=== PATIENT | female | born 1970 | race Two or more races ===

== ENCOUNTER → 2016-09-17 | Outpatient (CLI) | payer MEDICAID ==
--- NOTE | 2016-09-17 14:07 | US ---
Ultrasound Pelvis Complete (Transabdominal and Endovaginal) Including Duplex/Doppler Imaging History: Enlarged left ovary on physical exam. N92.6, irregular menstruation, R10.2, pelvic pain, R19 .00. Technique: Transabdominal and endovaginal ultrasound images were obtained. Endovaginal images obtain ed for better evaluation of the uterine myometrium and adnexa. Duplex/Doppler imaging of adnexa. Findings: Uterus measures 8 x 4 x 6 cm. Endometrial thickness is 5 mm. Extending from the left fundu s cornua of the uterus, there is an exophytic hypoechoic 5.1 x 4.6 x 4.1 cm leiomyoma. Also in the ri ght fundus region, there is a 2.6 x 2.2 x 2.1 cm hypoechoic leiomyoma. Also in the anterior fundal re gion, there is a subserosal 1.5 x 1.2 x 1.3 cm leiomyoma. Right ovary measures 2.8 x 2.3 x 1.6 cm. Left ovary measures 3.8 x 3.7 x 4.6 cm. In the left ovary, t here is a 3.4 x 3.3 x 2.9 cm complex cyst. No significant free fluid in the pelvis. Color Doppler alfonso w to both ovaries without torsion. Impression: 1. Leiomyomatous uterus with 3 leiomyomas, including the largest in the left fundal region measuring 5.1 x 4.6 x 4.1 cm. 2. Complex left ovarian 3.4 x 3.3 x 2.9 cm cystic lesion, which may represent a hemorrhagic cyst, how ever, follow-up ultrasound imaging in 8 to 12 weeks is recommended. 3. No ovarian torsion or significant ascites.
== END ==
LOC: FIMAGING 11:14
PROVIDERS: ATTEND Family Medicine
DX: D25.9 Leiomyoma of uterus, unspecified (principal); N83.202 Unspecified ovarian cyst, left side; R10.2 Pelvic and perineal pain; N92.6 Irregular menstruation, unspecified

== ENCOUNTER 2016-10-15 22:46 | Inpatient (IN) | payer MEDICAID ==
--- NOTE | 2016-10-15 22:53 | EDPHY ---
H & P Stated Complaint: N/V HPI/ROS: HPI CHIEF COMPLAINT: Abdominal pain HISTORY OF PRESENT ILLNESS: This patient very pleasant 46-year-old female Greek-speaking only, at bedside speaks Sami and Greek, presents to the emergency room with epigastric and right upper quadrant pain after eating this evening. Patient tells me that around 630 they had a salad, shortly after she developed epigastric abdominal pain right upper quadrant abdominal pain sharp in nature. Nonradiating. She developed nausea with multiple episodes of nonbilious nonbloody vomiting. She tells me that she has had 2 other episodes of this 1 in May and 1 in July. She had blood work done imaging initially they thought it was her appendix then they thought maybe it was her stomach. She was sent home on Zantac and Zofran. She has not had this every day. This just started this evening. She describes the pain as 7/10 epigastric right upper quadrant. Past Medical History: Denies any significant medical history Past Surgical History: Denies significant surgical history Social History: Denies use of drugs alcohol tobacco products Family History: Noncontributory ROS REVIEW OF SYSTEMS: A comprehensive 10 point review of systems is otherwise negative aside from elements mentioned in the history of present illness. Exam Constitutional triage nursing summary reviewed, vital signs reviewed, awake/ alert. Eyes normal conjunctivae and sclera, EOMI, PERRLA. HENT normal inspection, atraumatic, moist mucus membranes, no epistaxis, neck supple/ no meningismus, no raccoon eyes. Respiratory clear to auscultation bilaterally, normal breath sounds, no respiratory distress, no wheezing. Cardiovascular rate normal, regular rhythm, no murmur, no edema, distal pulses normal. Gastrointestinal soft, non-tender, no rebound, no guarding, normal bowel sounds, no distension, no pulsatile mass. Genitourinary no CVA tenderness. Musculoskeletal no midline vertebral tenderness, full range of motion, no calf swelling, no tenderness of extremities, no meningismus, good pulses, neurovascularly intact. Skin pink, warm, & dry, no rash, skin atraumatic. Neurologic awake, alert and oriented x 3, AAOx3, moves all 4 extremities equally, motor intact, sensory intact, CN II-XII intact, normal cerebellar, normal vision, normal speech. Psychiatric normal mood/affect. Heme/Lymph/Immune no lymphadenopathy. Differential diagnosis includes but is not limited to and in no particular order : gastritis, esophagitis, peptic ulcer disease, gallbladder disease Bowel obstruction, appendicitis, diverticulitis, colitis, enteritis, perforated viscus , gastritis, GERD, esophagitis, urinary tract infection, pyelonephritis, kidney stones Medical Decision Making: Patient had an IV established, she will be medicated with IV Dilaudid for pain control IV Zofran for nausea. IV fluids. Obtain an ultrasound of the right upper quadrant. Evaluate her gallbladder and pancreas. She will have lipase CBC LFTs EKG and troponin. Will hydrated with normal saline at a re-evaluated. Re-evaluation: EKG interpretation by me on record in [employer] system. Impression time of EKG 2226, this is sinus rhythm rate of 76. No acute ischemic changes appreciated. CT scan of the abdomen pelvis with IV contrast. The results of the study are negative for acute intra-abdominal process. The study was read by Dr. Barajas I viewed the images myself on the PACS system. Ultrasound of the right upper quadrant The results of the study are negative for anything acute specifically no gallstones, or evidence of cholecystitis. I discussed the results of this study with the radiologist Dr. Gutierrez. 0235: RE-EXAMINATION AT THIS TIME IS PATIENT STILL HAS ONGOING NAUSEA WITH VOMITING. NONBILIOUS NONBLOODY. SHE IS STILL MILDLY TENDER EPIGASTRIC. I WONDER SHE HAS GASTRITIS VERSUS PEPTIC ULCER DISEASE. HER CT SCAN, ULTRASOUND AND BLOOD WORK ARE REASSURING. DUE TO ONGOING NAUSEA VOMITING AND REALLY MINIMAL RELIEF HERE IN THE EMERGENCY ROOM AND 3RD ER VISIT I WILL KEEP HER IN THE HOSPITAL OVERNIGHT TO THE HOSPITALIST SERVICE I SPOKE WITH DR. ANGELA OF [facility] TO ADMIT THIS PATIENT FOR ONGOING NAUSEA VOMITING GASTRITIS. Here in the emergency room she has been given GI cocktail, IV Protonix, multiple rounds of antiemetics including Zofran and Phenergan, Dilaudid for pain control. She continues to have epigastric pain nausea vomiting. Her troponin is noted to be negative EKG is nonischemic. Most likely gastritis versus peptic ulcer disease given her reassuring ultrasound of her gallbladder and CT scan. Source: Patient - Personal History LMP (Females 10-55): 1-7 Days Ago Tetanus Vaccine Date: 2009 - Medical/Surgical History Hx Asthma: No Hx Chronic Respiratory Disease: No Hx Diabetes: No Hx Cardiac Disease: No Hx Renal Disease: No Hx Cirrhosis: No Hx Alcoholism: No Hx HIV/AIDS: No Hx Splenectomy or Spleen Trauma: No Other PMH: denies - Social History Smoking Status: Never smoked Constitutional: Initial Vital Signs Temperature (C) 36.8 C 10/15/16 22:48 Heart Rate 89 10/15/16 22:48 Respiratory Rate 20 10/15/16 22:48 Blood Pressure 123/79 H 10/15/16 22:48 O2 Sat (%) 97 10/15/16 22:48 O2 Delivery Mode Nasal Cannula O2 (L/minute) 2 Allergies/Adverse Reactions: No Known Allergies Allergy (Verified 08/05/16 23:43) Home Medications: Medication Instructions Recorded NK [No Known Home Meds] 10/15/16 Medical Decision Making - Data Points Laboratory Results: Laboratory Results 10/15/16 23:10 10/15/16 23:10 10/16/16 10/15/16 01:05 23:10 WBC 13.69 H 10^3/uL (3.80-9.50) RBC 4.72 10^6/uL (4.18-5.33) Hgb 14.5 g/dL (12.6-16.3) Hct 42.1 % (38.0-47.0) MCV 89.2 fL (81.5-99.8) MCH 30.7 pg (27.9-34.1) MCHC 34.4 g/dL (32.4-36.7) RDW 12.5 % (11.5-15.2) Plt Count 275 10^3/uL (150-400) MPV 10.8 fL (8.7-11.7) Neut % (Auto) 81.1 H % (39.3-74.2) Lymph % (Auto) 11.8 L % (15.0-45.0) [place] % (Auto) 5.6 % (4.5-13.0) Eos % (Auto) 0.7 % (0.6-7.6) Baso % (Auto) 0.4 % (0.3-1.7) Nucleat RBC Rel Count 0.0 % (0.0-0.2) Absolute Neuts (auto) 11.09 H 10^3/uL (1.70-6.50) Absolute Lymphs (auto) 1.61 10^3/uL (1.00-3.00) Absolute Monos (auto) 0.77 10^3/uL (0.30-0.80) Absolute Eos (auto) 0.10 10^3/uL (0.03-0.40) Absolute Basos (auto) 0.06 10^3/uL (0.02-0.10) Absolute Nucleated RBC 0.00 10^3/uL (0-0.01) Immature Gran % 0.4 % (0.0-1.1) Immature Gran # 0.06 10^3/uL (0.00-0.10) PT 12.5 SEC (12.0-15.0) INR 0.94 (0.83-1.16) APTT 23.1 SEC (23.0-38.0) VBG Lactic Acid 1.4 mmol/L (0.7-2.1) Sodium 144 mEq/L (134-144) Potassium 3.9 mEq/L (3.5-5.2) Chloride 103 mEq/L (97-110) Carbon Dioxide 28 mEq/l (22-31) Anion Gap 13 mEq/L (8-16) BUN 16 mg/dL (7-23) Creatinine 0.7 mg/dL (0.6-1.0) Estimated GFR > 60 Glucose 101 H mg/dL (70-100) Calcium 9.3 mg/dL (8.5-10.4) Total Bilirubin 0.6 mg/dL (0.1-1.4) Conjugated Bilirubin 0.2 mg/dL (0.0-0.5) Unconjugated Bilirubin 0.4 mg/dL (0.0-1.1) AST 28 IU/L (14-46) ALT 37 IU/L (9-52) Alkaline Phosphatase 59 IU/L (38-126) Troponin I < 0.012 ng/mL (0-0.034) Total Protein 7.9 g/dL (6.3-8.2) Albumin 4.4 g/dL (3.5-5.0) Amylase 99 IU/L (30-110) Lipase 105.0 IU/L (23-300) Beta HCG, Qual NEGATIVE Urine Color YELLOW Urine Appearance HAZY Urine pH 5.0 (5.0-7.5) Ur Specific [place] > 1.035 H (1.002-1.030) Urine Protein NEGATIVE (NEGATIVE) Urine Ketones 1+ H (NEGATIVE) Urine Blood NEGATIVE (NEGATIVE) Urine Nitrate NEGATIVE (NEGATIVE) Urine Bilirubin NEGATIVE (NEGATIVE) Urine Urobilinogen NEGATIVE EU (0.2-1.0) Ur Leukocyte Esterase 3+ H (NEGATIVE) Urine RBC 3-5 H /hpf (0-3) Urine WBC 3-5 H /hpf (0-3) Ur Epithelial Cells TRACE /lpf (NONE-1+) Urine Mucus 2+ H /lpf (NONE-1+) Ur Culture Indicated? INDICATED H (NI) Urine Glucose NEGATIVE (NEGATIVE) Medications Given: Discontinued Medications Hydromorphone HCl (Dilaudid) 0.5 mg IVP EDNOW ONE Stop: 10/15/16 22:59 Last Admin: 10/15/16 23:13 Dose: 0.5 mg Hydromorphone HCl (Dilaudid) 1 mg IVP EDNOW ONE Stop: 10/15/16 23:38 Last Admin: 10/15/16 23:41 Dose: 1 mg Sodium Chloride (Ns) 1,000 mls @ 0 mls/hr IV ONCE ONE PRN Reason: Wide Open Stop: 10/15/16 22:59 Last Admin: 10/15/16 23:12 Dose: 1,000 mls Miscellaneous Medication (Gi Cocktail) 55 ml PO EDNOW ONE Stop: 10/16/16 02:08 Last Admin: 10/16/16 02:08 Dose: 55 ml Ondansetron HCl (Zofran) 4 mg IVP EDNOW ONE Stop: 10/15/16 22:59 Last Admin: 10/15/16 23:13 Dose: 4 mg Departure - Departure Disposition: [facility] Inpatient Acute Clinical Impression: Abdominal pain Qualifiers: Abdominal location: epigastric Qualifier Code: (R10.13) Epigastric pain Nausea and vomiting Qualifiers: Vomiting type: unspecified Vomiting Intractability: intractable Qualifier Code : (R11.2) Nausea with vomiting, unspecified Condition: Fair
[2016-10-15] MEDS ORDERED: HYDROmorphONE/DILAUDID 1 MG/ML SYR IVP ONE ×2 (22:58→23:37)
[2016-10-15] MEDS ORDERED: ONDANSETRON 4 MG/2 ML VIAL IVP ONE (22:58)
[2016-10-15] MEDS ORDERED: NS 1,000 ML IV ONE (22:58)
[2016-10-15 23:30] LABS: % IMMATURE GRANULYOCYTES 0.4 % (0.0-1.1); ABSOLUTE IMMATURE GRANULOCYTES 0.06 10^3/uL (0.00-0.10); ADD DIFF? NO; ADD MORPH? NO; ADD SCAN? NO; ATYPICAL LYMPHOCYTE FLAG 0 (0-99); FRAGMENT RBC FLAG 0 (0-99); HEMATOCRIT 42.1 % (38.0-47.0); HEMOGLOBIN 14.5 g/dL (12.6-16.3); LEFT SHIFT FLG 0 (0-99); LIPEMIA HEMOLYSIS FLAG 90 (0-99); MEAN CELL HEMOGLOBIN 30.7 pg (27.9-34.1); MEAN CELL HEMOGLOBIN CONCENTR. 34.4 g/dL (32.4-36.7); MEAN CELL VOLUME 89.2 fL (81.5-99.8); MEAN PLATELET VOLUME 10.8 fL (8.7-11.7); PLATELET CLUMPS FLAG 10 (0-99); PLATELET COUNT 275 10^3/uL (150-400); RED BLOOD CELL COUNT 4.72 10^6/uL (4.18-5.33); RED CELL DISTRIBUTION WIDTH 12.5 % (11.5-15.2)
--- NOTE | 2016-10-15 23:30 | CPEKG ---
Heart Rate: 76 RR Interval: 789 P-R Interval: 140 QRSD Interval: 96 QT Interval: 408 QTC Interval: 459 P Hunter: 38 QRS Hunter: 55 T Wave Hunter: 18 EKG Severity - NORMAL ECG - EKG Impression: SINUS RHYTHM Electronically Signed By: Sukumar Mai 16-Oct-2016 07:16:34
[2016-10-15 23:35] LABS: APTT 23.1 SEC (23.0-38.0); INR 0.94 (0.83-1.16); PROTIME(PATIENT) 12.5 SEC (12.0-15.0)
[2016-10-15 23:36] LABS: ALANINE AMINOTRANSFERASE 37 IU/L (9-52); ALBUMIN 4.4 g/dL (3.5-5.0); ALKALINE PHOSPHATASE 59 IU/L (38-126); AMYLASE 99 IU/L (30-110); ANION GAP 13 mEq/L (8-16); ASPARTATE AMINOTRANSFERASE 28 IU/L (14-46); BILIRUBIN,TOTAL 0.6 mg/dL (0.1-1.4); BILIRUBIN-CONJUGATED 0.2 mg/dL (0.0-0.5); BILIRUBIN-UNCONJUGATED 0.4 mg/dL (0.0-1.1); CALCIUM 9.3 mg/dL (8.5-10.4); CARBON DIOXIDE 28 mEq/l (22-31); CHLORIDE 103 mEq/L (97-110); CREATININE 0.7 mg/dL (0.6-1.0); GLOMERULAR FILTRATION RATE > 60; GLUCOSE 101 mg/dL (70-100); POTASSIUM 3.9 mEq/L (3.5-5.2); SODIUM 144 mEq/L (134-144); TOTAL PROTEIN 7.9 g/dL (6.3-8.2)
[2016-10-15] MEDS ORDERED: HYDROmorphONE/DILAUDID 1 MG/ML SYR ONE (23:38)
[2016-10-15] MEDS ORDERED: PROMETHAZINE HCL 25 MG/ML INJ ONE (23:38)
[2016-10-15] MEDS: PROMETHAZINE HCL 25 MG/ML INJ IVP PRN (23:42)
[2016-10-15 23:47] LABS: TROPONIN I < 0.012 ng/mL (0-0.034)
--- NOTE | 2016-10-16 00:10 | US ---
Right Upper Quadrant Abdominal Sonogram History: Possible gallstones, RUQ pain Findings: There are no gallstones, gallbladder wall thickening or pericholecystic fluid. The liver, r ight kidney, pancreas, and common duct are normal. There is no ascites. The visualized aorta and IVC are normal. Impression: Normal study. Results discussed with Dr. Damon at 12:08 a.m.
[2016-10-16] MEDS ORDERED: IOPAMIDOL (ISOVUE-300) 100 ML BTL IV ONE (00:20)
[2016-10-16] MEDS ORDERED: MAALOX/LIDO/HYOSC GI COCKTAIL 55 ML BOTTLE ONE (01:40)
[2016-10-16] MEDS: PROMETHAZINE HCL 25 MG/ML INJ IVP PRN ×2 (01:44→20:28)
[2016-10-16 01:49] LABS: COLOR YELLOW; LEUKOCYTE ESTERASE,URINE 3+ (NEGATIVE); NITRITE,URINE NEGATIVE (NEGATIVE)
[2016-10-16 01:52] LABS: MUCUS 2+ /lpf (NONE-1+)
[2016-10-16] MEDS ORDERED: MAALOX/LIDO/HYOSC GI COCKTAIL 55 ML BOTTLE PO ONE (02:07)
[2016-10-16] MEDS ORDERED: PANTOPRAZOLE SODIUM 40 MG VIAL IVP ONE (02:30)
[2016-10-16] MEDS ORDERED: HYDROmorphONE/DILAUDID 1 MG/ML SYR IVP ONE (02:30)
[2016-10-16] MEDS ORDERED: oxyCODONE IR 5 MG TAB PO PRN (03:07)
[2016-10-16] MEDS ORDERED: ONDANSETRON 4 MG/2 ML VIAL IVP PRN (03:07)
[2016-10-16] MEDS ORDERED: ACETAMINOPHEN 500 MG TAB PO PRN (03:07)
[2016-10-16] MEDS ORDERED: ONDANSETRON DISINTEGRATING 4 MG TAB PO PRN (03:07)
[2016-10-16] MEDS ORDERED: MAG HYDROX/AL HYDROX/SIMETH 30 ML UDCUP PO PRN (03:09)
--- NOTE | 2016-10-16 03:32 | PDGENHP ---
History and Physical - Chief Complaint Nausea vomiting and abdominal pain - History of Present Illness patient is a 46-year-old female with no known past medical history presents to the ED complaining of abdominal pain, nausea and vomiting. Since 05/2016 patient has had 3 visits to the ED and 1 admission for these symptoms, workup had thus far been unrevealing. Today she states her symptoms started shortly after dinner. She ate dinner around 6:00 p.m., reporting a light salad, shortly after began feeling symptoms of early satiety and chills. Nausea then developed and she began vomiting, approximately 7 times in total at home, consisting of food particles, nonbilious and nonbloody. This was associated with sharp and severe epigastric and left upper quadrant pain. She tried Martina- [place] with no relief of symptoms so she came to the ED. Patient denies any regular NSAID use or any alcohol use. Previous workup for her abdominal symptoms included CT imaging and pelvic ultrasound. There is initial concern for acute appendicitis in 05/2016, however this was eventually ruled out. Imaging revealed ovarian cysts, which also are thought to not be contributing to her symptoms. She has not yet been evaluated by a GI doctor. On arrival to the ED patient was afebrile and hemodynamically stable, but with intractable nausea/vomiting. Labs were obtained and were unremarkable including LFTs and lipase. Abdominal US and CT abdomen pelvis were also checked and were unremarkable for any acute pathology. patient was then admitted to the hospital service for further management of her symptoms. History Information - Allergies/Home Medication List Allergies/Adverse Reactions: No Known Allergies Allergy (Verified 08/05/16 23:43) Home Medications: NK [No Known Home Meds] 10/15/16 [Last Taken Unknown] I have personally reviewed and updated: family history, medical history, social history, surgical history - Past Medical History no pertinent PMH - Surgical History Additional surgical history: b/l breast reduction surgery. liposuction - Family History Positive for: diabetes type II - Social History Smoking Status: Never smoked Alcohol Use: None Drug Use: None Additional social history: Patient is originally from [place], currently lives in [place] with her . Review of Systems ROS: 10pt was reviewed & negative except for what was stated in HPI & below Physical Exam Temp Pulse Resp BP Pulse Ox 36.8 C 81 18 114/78 100 10/15/16 22:48 10/16/16 02:52 10/16/16 02:52 10/16/16 02:52 10/16/16 02:52 O2 (L/minute) 2 Constitutional: no apparent distress, appears nourished, not in pain Eyes: PERRL, anicteric sclera, EOMI Ears, Nose, Mouth, Throat: moist mucous membranes, hearing normal, ears appear normal, no oral mucosal ulcers Cardiovascular: regular rate and rhythym, no murmur, rub, or gallop, pulses symmetric bilaterally, No JVD, No edema Peripheral Pulses: 2+: dorsalis-pedis (R), dorsalis-pedis (L) Respiratory: no respiratory distress, no rales or rhonchi, clear to auscultation Gastrointestinal: normoactive bowel sounds, no palpable masses, tenderness ( In epigastrium and left upper quadrant), No ascites, No guarding, No rebound, No distension Genitourinary: no bladder fullness, no bladder tenderness Skin: warm, normal color, no rashes or abrasions, no fluctuance, no induration, No mottled Musculoskeletal: full muscle strength, no muscle tenderness, normal joint ROM, no joint effusions Neurologic: AAOx3, sensation intact bilaterally, CN II-XII Intact, No weakness, No numbness, No pronator drift Psychiatric: interacting appropriately, not anxious, not encephalopathic, thought process linear Lab Data & Imaging Review 10/15/16 23:10 10/15/16 23:10 WBC 13.69 10^3/uL (3.80-9.50) H 10/15/16 23:10 RBC 4.72 10^6/uL (4.18-5.33) 10/15/16 23:10 Hgb 14.5 g/dL (12.6-16.3) 10/15/16 23:10 Hct 42.1 % (38.0-47.0) 10/15/16 23:10 MCV 89.2 fL (81.5-99.8) 10/15/16 23:10 MCH 30.7 pg (27.9-34.1) 10/15/16 23:10 MCHC 34.4 g/dL (32.4-36.7) 10/15/16 23:10 RDW 12.5 % (11.5-15.2) 10/15/16 23:10 Plt Count 275 10^3/uL (150-400) 10/15/16 23:10 MPV 10.8 fL (8.7-11.7) 10/15/16 23:10 Neut % (Auto) 81.1 % (39.3-74.2) H 10/15/16 23:10 Lymph % (Auto) 11.8 % (15.0-45.0) L 10/15/16 23:10 [place] % (Auto) 5.6 % (4.5-13.0) 10/15/16 23:10 Eos % (Auto) 0.7 % (0.6-7.6) 10/15/16 23:10 Baso % (Auto) 0.4 % (0.3-1.7) 10/15/16 23:10 Nucleat RBC Rel Count 0.0 % (0.0-0.2) 10/15/16 23:10 Absolute Neuts (auto) 11.09 10^3/uL (1.70-6.50) H 10/15/16 23:10 Absolute Lymphs (auto) 1.61 10^3/uL (1.00-3.00) 10/15/16 23:10 Absolute Monos (auto) 0.77 10^3/uL (0.30-0.80) 10/15/16 23:10 Absolute Eos (auto) 0.10 10^3/uL (0.03-0.40) 10/15/16 23:10 Absolute Basos (auto) 0.06 10^3/uL (0.02-0.10) 10/15/16 23:10 Absolute Nucleated RBC 0.00 10^3/uL (0-0.01) 10/15/16 23:10 Immature Gran % 0.4 % (0.0-1.1) 10/15/16 23:10 Immature Gran # 0.06 10^3/uL (0.00-0.10) 10/15/16 23:10 PT 12.5 SEC (12.0-15.0) 10/15/16 23:10 INR 0.94 (0.83-1.16) 10/15/16 23:10 APTT 23.1 SEC (23.0-38.0) 10/15/16 23:10 VBG Lactic Acid 1.4 mmol/L (0.7-2.1) 10/15/16 23:10 Sodium 144 mEq/L (134-144) 10/15/16 23:10 Potassium 3.9 mEq/L (3.5-5.2) 10/15/16 23:10 Chloride 103 mEq/L (97-110) 10/15/16 23:10 Carbon Dioxide 28 mEq/l (22-31) 10/15/16 23:10 Anion Gap 13 mEq/L (8-16) 10/15/16 23:10 BUN 16 mg/dL (7-23) 10/15/16 23:10 Creatinine 0.7 mg/dL (0.6-1.0) 10/15/16 23:10 Estimated GFR > 60 10/15/16 23:10 Glucose 101 mg/dL (70-100) H 10/15/16 23:10 Calcium 9.3 mg/dL (8.5-10.4) 10/15/16 23:10 Total Bilirubin 0.6 mg/dL (0.1-1.4) 10/15/16 23:10 Conjugated Bilirubin 0.2 mg/dL (0.0-0.5) 10/15/16 23:10 Unconjugated Bilirubin 0.4 mg/dL (0.0-1.1) 10/15/16 23:10 AST 28 IU/L (14-46) 10/15/16 23:10 ALT 37 IU/L (9-52) 10/15/16 23:10 Alkaline Phosphatase 59 IU/L (38-126) 10/15/16 23:10 Troponin I < 0.012 ng/mL (0-0.034) 10/15/16 23:10 Total Protein 7.9 g/dL (6.3-8.2) 10/15/16 23:10 Albumin 4.4 g/dL (3.5-5.0) 10/15/16 23:10 Amylase 99 IU/L (30-110) 10/15/16 23:10 Lipase 105.0 IU/L (23-300) 10/15/16 23:10 Beta HCG, Qual NEGATIVE 10/15/16 23:10 Urine Color YELLOW 10/16/16 01:05 Urine Appearance HAZY 10/16/16 01:05 Urine pH 5.0 (5.0-7.5) 10/16/16 01:05 Ur Specific [place] > 1.035 (1.002-1.030) H 10/16/16 01:05 Urine Protein NEGATIVE (NEGATIVE) 10/16/16 01:05 Urine Ketones 1+ (NEGATIVE) H 10/16/16 01:05 Urine Blood NEGATIVE (NEGATIVE) 10/16/16 01:05 Urine Nitrate NEGATIVE (NEGATIVE) 10/16/16 01:05 Urine Bilirubin NEGATIVE (NEGATIVE) 10/16/16 01:05 Urine Urobilinogen NEGATIVE EU (0.2-1.0) 10/16/16 01:05 Ur Leukocyte Esterase 3+ (NEGATIVE) H 10/16/16 01:05 Urine RBC 3-5 /hpf (0-3) H 10/16/16 01:05 Urine WBC 3-5 /hpf (0-3) H 10/16/16 01:05 Ur Epithelial Cells TRACE /lpf (NONE-1+) 10/16/16 01:05 Urine Mucus 2+ /lpf (NONE-1+) H 10/16/16 01:05 Ur Culture Indicated? INDICATED (NI) H 10/16/16 01:05 Urine Glucose NEGATIVE (NEGATIVE) 10/16/16 01:05 Visualized and Interpreted imaging results: Yes Interpretation: Abd US: normal biliary tree and liver. CT abd/pelvis: no acute pathology, no intraabdominal free air Visualized and Interpreted EKG results: Yes EKG Interpretation: Positive for: normal sinsus rhythm EKG additional interpertation: no st/twave changes, normal intevals Assessment & Plan Assessment: Patient is a 46-year-old female with history of recurrent episodic abdominal pain, nausea and vomiting of unclear etiology who presents again for the 3rd time in the past 4 months with the symptoms. Plan: # acute nausea, vomiting, abdominal pain Appears consistent with gastritis, as LFTs, abdominal imaging are within normal limits. Patient at risk for H pylori given she's originally from [place] and Ab is positive. Will empirically treat with triple therapy at this time. Can also consider GI consult vs outpatient referral. Will also cont IVF hydration and symptomatic treatment. - initiate PPI bid, amoxicillin, clarithromycin - pain and nausea control as needed # dispo: admit to observation for symptom control # full code
[2016-10-16] MEDS: NS 1,000 ML IV SCH ×2 (03:56→15:58)
[2016-10-16] MEDS: PANTOPRAZOLE SODIUM 40 MG in NS 100 ML IV SCH ×2 (08:16→20:28)
[2016-10-16] MEDS ORDERED: PANTOPRAZOLE SODIUM 40 MG in NS 100 ML IV SCH (09:00)
[2016-10-16] MEDS: HYDROmorphONE/DILAUDID 1 MG/ML SYR IVP PRN ×6 (09:23→20:28)
--- NOTE | 2016-10-16 10:21 | HOSPPROG ---
Hospitalist Progress Note Assessment/Plan: DIAGNOSIS: # INTRACTABLE EPIGASTRIC PAIN AND INTRACTABLE VOMITING, UNCERTAIN ETIOLOGY # MULTIPLE ADNEXAL CYSTS IN THE LEFT PELVIS, UNRELATED TO HER PAIN BUT OF UNCERTAIN SIGNIFICANCE; FOLLOWED BY GYNECOLOGY # UNREMARKABLE CT SCAN AND ULTRASOUND OF ABDOMEN OTHERWISE PLANS: -I think it would be useful to do an upper endoscopy to be sure there is not any sign of gastric outlet obstruction and I asked Dr. Emmanuel Ricardo to see her for this -It may be that we need to work on diet changes and if there are no endoscopic findings consider possibly medications for functional bowel syndrome like fall irritable bowel syndrome For now will continue IV hydration, analgesics, antiemetics as needed SUBJECTIVE: The patient continues to have severe epigastric pain and nausea today. No vomiting so far this morning. Requiring ongoing IV analgesic and antiemetic Today she does mention to me that in between her 3 episodes with ER visits, she has had ongoing early satiety and mild pain interfere with eating. She does think that bread may be a significant factor in these symptoms, and also of at times dairy will cause problems for her. She says she has loose or diarrheal stools at least 2-3 times per week chronically. There is no fever symptoms, no shortness of breath no other pains. OBJECTIVE Vitals reviewed: Stable without fever Exam: alert oriented skin warm dry color ok no jaundice resps not labored lungs clear BSs heart regular abd soft nondistended no objective signs of tenderness but diffuse subjective tenderness with palpation, no guarding or rebound, bowel sounds present limbs warm, no edema iv site ok I have reviewed the images from her CT scan and ultrasound from last night. Aside from the adnexal cysts in the left pelvis I find no concerning abnormalities in the images. Objective: Vital Signs Temp Pulse Resp BP Pulse Ox 37.0 C 84 16 101/70 95 10/16/16 08:00 10/16/16 08:00 10/16/16 08:00 10/16/16 08:00 10/16/16 08:00 10/15/16 10/16/16 10/17/16 06:59 06:59 06:59 Intake Total 1300 Balance 1300 PT 12.5 SEC (12.0-15.0) 10/15/16 23:10 INR 0.94 (0.83-1.16) 10/15/16 23:10 ICD10 Worksheet Patient Problems: Problems Problem Status Diagnosed Abdominal pain Acute Nausea & vomiting Acute
--- NOTE | 2016-10-16 11:36 | CT ---
T Scan of the Abdomen and Pelvis With Contrast Indication: Severe upper abdominal pain in a 46-year-old female. Technique: Multidetector CT images of the abdomen and pelvis were obtained following the uneventful i ntravenous administration of 85 mL Isovue-300 contrast. Axial images are obtained at 5 mm intervals a nd reformatted at 1.5 mm thickness. The examination is reviewed on the workstation at multiple window /level settings. Sagittal and coronal reformations are performed. Dose reduction techniques were util ized for this examination. Comparison: Comparison to recent negative upper abdominal ultrasound and previous abdominal and pelv ic CT studies from May 11, 2016. Abdomen: Lung bases: Normal. No pleural fluid. Mild gaseous distention is noted involving the ascending and proximal transverse colon. No free air i s seen. Liver: Normal. Biliary system: Normal gallbladder. No intra or extrahepatic dilatation. Spleen: Normal. Pancreas: Normal. Adrenals: Normal. Kidneys: No obstruction or solid masses. Abdominal Aorta: No aneurysm. No bowel obstruction, ascites, or retroperitoneal lymphadenopathy. CT Pelvis Findings: Again noted is a mildly distended appendix, which was demonstrated to measure up to 10 mm in diameter and be compressible on the limited abdominal ultrasound performed August 06, 2016. There are no inflammatory changes seen adjacent to the appendix. No free fluid is identified. U terine fibroid formation is noted, which was well evaluated on pelvic ultrasound of September 17, 2016. Multiple pelvic phleboliths are noted. Impression: 1. No acute abdominal or pelvic abnormality. 2. Mild dilatation of the ascending and proximal transverse colon of uncertain significance. 3. See above report for additional findings. The study was performed as an emergency on-call case and discussed by telephone with Dr. Sukumar cummins at 0130 hours. The final interpretation is concordant with the original communication.
[2016-10-16] MEDS: CLARITHROMYCIN 500 MG TAB PO SCH ×2 (16:53→21:01)
--- NOTE | 2016-10-16 19:07 | GCON ---
[f rep st] CONSULTATION CHIEF COMPLAINT: A 46-year-old woman with epigastric pain, nausea and vomiting. HISTORY OF PRESENT ILLNESS: This very pleasant 46-year-old woman has no significant past medical his tory. However, since May she has had recurrent attacks of abdominal pain. She reports being t o the hospital in May, and now this admission. She describes episodes of severe stabb ing epigastric pain. Pain can also be generalized. She can have some associated diarrhea and vomiti ng. She denies any fevers or chills. She has had a previous CT scan that was normal. Also, ultraso und was normal. She denies any symptoms of heartburn or difficulty swallowing. She reports normal, regular bowel movements. She cannot identify any particular aggravating or relieving factors. She h as also had a pelvic ultrasound, which showed some ovarian cysts, otherwise unremarkable. She was ad mitted to the hospital for supportive care and further management. History was obtained through a [facility] communications tower technician. PAST MEDICAL HISTORY: Negative other than mentioned in HPI. SURGICAL HISTORY: Remarkable for bilateral breast reduction and liposuction. FAMILY HISTORY: Remarkable for diabetes mellitus type 2, otherwise negative as it pertains to chief complaint. SOCIAL HISTORY: She is a nonsmoker. No alcohol. No history of drug use. [facility], lives in [place] with her . MEDICATIONS: None prior to admission. REVIEW OF SYSTEMS: Negative for 10 systems other than mentioned in HPI. PHYSICAL EXAM: VITAL SIGNS: She is 36.8, pulse of 81, respiratory rate 18, 114/78, pulse ox 100% on 2 L nasal cannula. GENERAL: Very pleasant woman, in no acute distress. HEENT: Normocephalic atra umatic. EOMI. NECK: Supple. No cervical adenopathy. LUNGS: Clear. CARDIAC: Normal S1, S2 with out murmur. ABDOMEN: Tenderness to palpation in the upper abdomen. Normal bowel sounds. Soft. EX TREMITIES: Without clubbing, cyanosis, edema. SKIN: Warm, dry, intact. NEURO: Nonfocal. Cranial nerves 2-12 intact. PSYCH: Alert and oriented x3 with normal affect. LABORATORY DATA: Serum sodium 144, potassium 3.9, chloride 103, CO2 was 28, BUN 16, creatinine 0.6. AST of 28, ALT of 37, alk phos of 59. Amylase of 99, lipase of 105. Hemoglobin of 14.5, hematocrit 46.1, white count of 13.69. IMPRESSION: A 46-year-old woman with recurrent episodes of abdominal pain, nausea, and vomiting, unc lear etiology. She has had a normal CT scan, normal right upper quadrant ultrasound. RECOMMENDATIONS: 1. Clear liquid diet, advance as tolerated. 2. N.p.o. after midnight and proceed with diagnostic endoscopy in the morning. 3. Pending endoscopy results, consider further evaluation with a HIDA scan to rule out biliary dyski nesia or chronic cholecystitis. Will follow with you. /[id number]/MODL
[2016-10-17] MEDS ORDERED: MIDAZOLAM 2 MG/2 ML VIAL ONE (08:51)
[2016-10-17] MEDS ORDERED: fentaNYL 100 MCG/2 ML INJ ONE (08:51)
[2016-10-17] MEDS: PANTOPRAZOLE SODIUM 40 MG in NS 100 ML IV SCH (11:22)
[2016-10-17] MEDS: CLARITHROMYCIN 500 MG TAB PO SCH (11:22)
--- NOTE | 2016-10-17 12:24 | GPN ---
[f rep st] PROCEDURE NOTE PROCEDURE: EGD with biopsy. PREOPERATIVE DIAGNOSIS: Epigastric pain. POSTOPERATIVE DIAGNOSIS: Essentially normal upper endoscopy status post small bowel biopsy for celiac disease and gastric biopsy for Helicobacter pylori. INDICATIONS: A 46-year-old woman with recurrent episodes of epigastric pain, fairly sudden onset, severe, sharp, stabbing epigastric pain. Difficulty eating. The patient has had a previous CT scan and ultrasound which were normal. She has no history of NSAID use. No other significant medical problems. The patient presents now for upper endoscopy to evaluate for possible peptic ulcer disease, gastritis. PHYSICAL EXAM: VITAL SIGNS: Stable. LUNGS: Clear. CARDIAC: Normal S1, S2 without murmur. PERMIT: Procedure was explained to the patient. Risks and benefits of the procedure outlined to the patient. Informed consent was obtained. PREOPERATIVE MEDICATIONS: Fentanyl 75 mcg, 3 mg of Versed. DESCRIPTION OF PROCEDURE: Patient was placed in left lateral decubitus position. A GIF-180 videoscope was passed through the oropharynx under direct visualization of the proximal esophagus. The esophagus was normal at GE junction at 40 cm. The endoscope was passed through the stomach. There was a normal antrum and body. Slight erythema of the antrum. Biopsies were taken for H. pylori. The endoscope was passed through the pylorus in the 1st and 2nd portion of the duodenum. Duodenal sweep was normal. Biopsies were taken in the 2nd portion of the duodenum to evaluate for celiac disease. The endoscope was brought back in the stomach. Retroflexed view of the stomach revealed a normal angularis, fundus and cardia. Endoscope was unretroflexed and then withdrawn. IMPRESSION: Essentially normal upper endoscopy status post biopsies of small bowel and gastric biopsies. RECOMMENDATIONS: Advance diet as tolerated. Will proceed with HIDA scan with Ejection fraction to evaluate for chronic cholecystitis or gallbladder dysmotility. Thank you for allowing me to participate in the care of this patient. /[id number]/MODL MTDD
[2016-10-17 16:15] VITALS: RESP 16
--- NOTE | 2016-10-17 17:04 | NM ---
Nuclear Medicine Hepatobiliary Scan with Gallbladder Ejection Fraction Clinical History: 46-year-old female with intermittent right upper quadrant pain since May, wit h some vomiting and bloating. The patient had prior normal right upper quadrant abdominal sonography. Evaluate for biliary dyskinesia. Radiopharmaceutical: 5.5 mCi of IV technetium 99m Choletec. Medical Pharmaceutical: 8 ounces of Nepro with 50.7 g of fat. Technique: After the uncomplicated intravenous administration of the radiopharmaceutical, anterior im aging of the right upper quadrant of the abdomen was performed. Subsequently, the oral fatty meal was administered and additional imaging was obtained and a time activity curve was plotted. Comparison study: Right upper quadrant abdominal sonography, dated October 15, 2016. Findings: Hepatobiliary Scan: There is prompt homogeneous uptake of the radiotracer by the liver. The gallbladd er begins to fill by 3 minutes, and continues to accumulate radiotracer. Small bowel is visualized on the post-Nepro images. There is therefore no evidence of acute or chronic cholecystitis, or of cysti c or common bile duct obstruction. There is no duodenal-gastric reflux. Gallbladder Ejection Fraction: There is a normal washout on the time activity curve, with a gallbladd er ejection fraction 57%. As a point of reference, the normal range is 35% or above. There is therefo re no evidence of gallbladder dyskinesia. Impression: Normal exams.
[2016-10-17 18:06] VITALS: BP 100/68; PULSE 89; TEMP 97.5; O2SAT 96
--- NOTE | 2016-10-17 21:02 | GDS ---
[f rep st] DISCHARGE SUMMARY DISCHARGE DIAGNOSES: 1. Epigastric pain. 2. Nausea and vomiting, resolved. CONSULTANTS: Gastroenterology, Dr. Emmanuel Ricardo. PROCEDURES PERFORMED: 1. Esophagogastroduodenoscopy, October 17, 2016, was essentially normal, just slight erythema of the antrum. Biopsies are pending. 2. Hepatobiliary iminodiacetic acid scan, October 17, 2016, was normal with a gallbladder ejection f raction of 57%. There was no evidence of gallbladder dyskinesia. HISTORY: For details, please see dictated history and physical, dated October 16, 2016, by Dr. Balbina Bradley. In brief, the patient is a 46-year-old female who presented to the [facility] complaining of abdominal pain, nausea and vomiting. She was admitted to the hospital for further e valuation. HOSPITAL COURSE: The patient's initial workup was unremarkable. She had an abdominal ultrasound whi ch showed a normal biliary tree, a normal liver. CT abdomen and pelvis was also negative for any acu te pathology. She did have a positive H pylori antibody and was started on triple therapy. Her symp toms resolved the following day and she was able to tolerate oral intake without any further nausea o r vomiting. She was discharged home to complete a 2-week course of triple therapy for H pylori antib linda. FOLLOWUP: 1. Primary care physician. 2. Dr. Emmanuel Ricardo, [facility] tayla needed. 3. Biopsies remain pending at the time of discharge. DISCHARGE MEDICATIONS: Please see Astech for completed, updated outpatient medication list. New medications on discharge include amoxicillin 1 g p.o. b.i.d. (#52, no refills), clarithromycin 50 0 mg p.o. b.i.d. (#26, no refills), and Protonix 40 mg p.o. b.i.d. (#30, no refills). /[id number]/MODL
== END 2016-10-17 18:08 | disposition home or self-care (01) | DRG 373 ==
LOC: INTOOBSV 10-16 02:33 → F1N 10-16 03:46 → OBSVTOIN 10-16 17:27
PROVIDERS: ADMIT Internal Medicine; ATTEND Internal Medicine
PROC: 0DB98ZX Excision of Duodenum, Via Natural or Artificial Opening Endoscopic, Diagnostic (ICD-10-PCS; principal; 2016-10-17 09:00)
PROC: 0DB68ZX Excision of Stomach, Via Natural or Artificial Opening Endoscopic, Diagnostic (ICD-10-PCS; principal; 2016-10-17 09:00)
DX: A04.8 Other specified bacterial intestinal infections (principal)
CPT/HCPCS: 96374; A9537; J1170; J2250; J2405; J2550; J3010; Q9967

== ENCOUNTER 2017-01-01 07:15 | Observation (INO) | payer MEDICAID ==
--- NOTE | 2016-12-18 12:18 | GHP ---
[f rep st] PREOP HISTORY AND PHYSICAL PLANNED PROCEDURE: Total laparoscopic hysterectomy with bilateral salpingectomy. INDICATIONS: Symptomatic uterine fibroids with A history of HPV positive. HISTORY OF PRESENT ILLNESS: The patient is a 46-year-old 1, para 0-0-1- 0, who initially presented to co in September of 2016 for a followup from an emergency room appointment. Patient had been seen in the emergency room several times over the last couple of months for abdominal pain, cramping, nausea and vomiting. She was evaluated for appendicitis and managed conservatively. The patient had several other episodes of cramping and had evaluation for gastritis. During those evaluations, she had an ultrasound performed which showed her uterus measuring 8 x 4 x 6 cm with an endometrium of 5 mm and multiple fibroids, the largest one measuring 5 x 4.6 x 4.1 cm, several other smaller fibroids, and she has a left adnexal cyst. The patient states her periods can be very heavy and has cramping, and she has pelvic pressure which interferes with her ability to run. We have had a long discussion about management options of expected management versus IUD versus oral contraceptions. The patient's most recent Pap smear was negative, but she had positive HPV. The combination of the symptomatic fibroids with the positive HPV has led the patient to decide to proceed with a hysterectomy. The patient speaks primarily Italian, but her does translate and has translated throughout the extensive discussion of all of her options. The patient has ultimately decided to proceed with a total laparoscopic hysterectomy with bilateral salpingectomy. Risks and benefits of the procedure have been extensively reviewed with the patient, and the patient has been properly consented. PAST MEDICAL HISTORY: Symptomatic fibroid uterus, gastritis. MEDICATIONS: None. PAST SURGICAL HISTORY: Breast reduction, liposuction, EGD. ALLERGIES: No known drug allergies. SOCIAL HISTORY: The patient is . She denies tobacco or drug use. She does drink alcoholic beverages, 2 a week. FAMILY MEDICAL HISTORY: Noncontributory. AUTO WRECKER HISTORY: Menarche age 17. Periods are 28 days and are moderate. She is a 1, para 0-0-1-0. She had a voluntary termination of in 1998. Patient does have a history of HPV on her most recent Pap smears but no other history of abnormal Pap smear. She denies any history of any other sexually transmitted diseases. PHYSICAL EXAMINATION: VITAL SIGNS: Stable. GENERAL APPEARANCE: She is alert and oriented x3. HEART: Her heart rate is regular, regular. LUNGS: Clear to auscultation bilaterally. ABDOMEN: Soft, nondistended, nontender. EXTREMITIES : Reveal no calf tenderness or edema. PELVIC: Most recent pelvic exam shows a uterus measuring 7.5 x 4.8 x 6.28 cm with a normal endometrium. She has a right fundal fibroid measuring 2.5 x 2 x 2.7 cm, an anterior subserosal fibroid measuring 1 x 1 x 1 cm, and a left lateral pedunculated fibroid measuring 5 x 5.1 x 4.9 cm. Her right ovary is unremarkable. Her left ovary has a small complex cyst which appears to be a resolving cyst. ASSESSMENT AND PLAN: A 46-year-old, 1, para 0-0-1-0 with symptomatic fibroid and positive HPV. We had a long discussion about conservative management options versus oral contraceptives versus IUD versus hysterectomy. The patient is electing to proceed with a total laparoscopic hysterectomy with bilateral salpingectomy. Risks, benefits. And followup precautions have been extensively reviewed with the patient and her . The patient has been properly consented. /[id number]/MODL MTDD
[2017-02-14] MEDS ORDERED: LIDOCAINE 1% 2 ML INJ ONE (06:12)
[2017-02-14] MEDS ORDERED: ceFAZolin 2 GM/DEXTROSE 100 ML IV ONE (06:30)
[2017-02-14 06:36] LABS: % IMMATURE GRANULYOCYTES 0.2 % (0.0-1.1); ABSOLUTE IMMATURE GRANULOCYTES 0.01 10^3/uL (0.00-0.10); ADD DIFF? NO; ADD MORPH? NO; ADD SCAN? NO; ATYPICAL LYMPHOCYTE FLAG 0 (0-99); FRAGMENT RBC FLAG 0 (0-99); HEMATOCRIT 39.5 % (38.0-47.0); HEMOGLOBIN 13.3 g/dL (12.6-16.3); LEFT SHIFT FLG 0 (0-99); LIPEMIA HEMOLYSIS FLAG 80 (0-99); MEAN CELL HEMOGLOBIN 30.5 pg (27.9-34.1); MEAN CELL HEMOGLOBIN CONCENTR. 33.7 g/dL (32.4-36.7); MEAN CELL VOLUME 90.6 fL (81.5-99.8); MEAN PLATELET VOLUME 10.2 fL (8.7-11.7); PLATELET CLUMPS FLAG 10 (0-99); PLATELET COUNT 232 10^3/uL (150-400); RED BLOOD CELL COUNT 4.36 10^6/uL (4.18-5.33); RED CELL DISTRIBUTION WIDTH 12.9 % (11.5-15.2)
[2017-02-14] MEDS ORDERED: PROPOFOL 200 MG/20 ML VIAL ONE (07:00)
[2017-02-14] MEDS ORDERED: HYDROmorphONE/DILAUDID 2 MG/ML INJ ONE (07:00)
[2017-02-14] MEDS ORDERED: fentaNYL 100 MCG/2 ML INJ ONE ×2 (07:00)
[2017-02-14] MEDS ORDERED: MIDAZOLAM 2 MG/2 ML VIAL ONE (07:10)
[2017-02-14] MEDS ORDERED: LIDOCAINE 1% 5 ML SDV ID PRN (07:11)
[2017-02-14] MEDS ORDERED: LR 1,000 ML IV ONE (07:11)
[2017-02-14] MEDS ORDERED: BUPIVACAINE 0.5% 30 ML SDV ONE (07:33)
[2017-02-14] MEDS ORDERED: PHENYLEPHRINE HCL 100 MCG/ML SYR ONE (08:17)
[2017-02-14] MEDS ORDERED: DEXAMETHASONE 4 MG/ML VIAL ONE (08:17)
[2017-02-14] MEDS ORDERED: LIDOCAINE 2% 100 MG/5 ML SYR ONE (08:17)
[2017-02-14] MEDS ORDERED: ONDANSETRON 4 MG/2 ML VIAL ONE (08:17)
[2017-02-14] MEDS ORDERED: epHEDrine SULFATE 10 MG/ML SYR ONE (08:17)
[2017-02-14] MEDS ORDERED: METHYLENE BLUE 0.5% 50 MG/10 ML AMP ONE (09:23)
[2017-02-14] MEDS ORDERED: ONDANSETRON 4 MG/2 ML VIAL IVP PRN (10:25)
[2017-02-14] MEDS ORDERED: HYDROCODONE/APAP 5/325 TAB PO PRN (10:25)
--- NOTE | 2017-02-14 10:25 | POSTOPPROG ---
Post Op Note Date of Operation: 02/14/17 Surgeon: Salena Sharma Partnership Development Manager: mary ann hernandes Anesthesia: GET(General Endotracheal) Pre-op Diagnosis: symptomatic uterine fibroids Post-op Diagnosis: same Procedure: total laparscopic hysterectomy bilateral salpingectomy Inf/Abcess present in the surg proc area at time of surgery?: No EBL: 100-500 Specimen(s): uterus, cervix, fibroid and bilateral fallopian tubes
[2017-02-14] MEDS ORDERED: LR 1,000 ML IV SCH (10:30)
[2017-02-14] MEDS: KETOROLAC 30 MG/1 ML SDV IVP SCH ×2 (12:10→18:48)
[2017-02-14 13:11] VITALS: PULSE 63; O2SAT 98
[2017-02-14 17:18] VITALS: BP 96/67; RESP 17; TEMP 97.3
--- NOTE | 2017-02-14 17:31 | SOAPPROG ---
SOAP Progress Note Assessment/Plan: Assessment: pod# 0 s/p TLH BS for symptomatic fibroids. uncomplicated post operative course Plan: discharge to home tonight unless patient changes her mind 02/14/17 17:27 Subjective: patient is doing great. pain is well controlled. got up and voided then vomited. no more nausea since zofran. tolerating clears. long discussion about discharge instructions and discharge options. Objective: Vital Signs Temp Pulse Resp BP Pulse Ox 36.3 C 63 17 96/67 L 98 02/14/17 16:10 02/14/17 16:10 02/14/17 16:10 02/14/17 16:10 02/14/17 16:10 Laboratory Results 02/14/17 06:25 02/13/17 02/14/17 02/15/17 05:59 05:59 05:59 Intake Total 1530 Output Total 450 Balance 1080 Physical Exam - Physical Exam General Appearance: WD/WN, alert, no apparent distress Respiratory: chest non-tender, lungs clear, normal breath sounds Cardiac/Chest: normal peripheral pulses, regular rate, rhythm Abdomen: normal bowel sounds, non-tender, soft Skin: normal color, warm/dry, other (incisions covered) Extremities: normal range of motion, non-tender, normal inspection, normal capillary refill Neuro/Psych: no motor/sensory deficits, alert, normal mood/affect, oriented x 3 ICD10 Worksheet Patient Problems: Problems Problem Status Onset Abdominal pain Acute Nausea & vomiting Acute
[2017-02-14] MEDS ORDERED: ONDANSETRON DISINTEGRATING 4 MG TAB PO PRN (17:32)
--- NOTE | 2017-02-14 21:07 | GOP ---
[f rep st] OPERATIVE REPORT DATE OF OPERATION: 02/14/2017 SURGEON: Salena Sharma DO RESERVATION MANAGER: Maria Ines Mendoza DO ANESTHESIA: General endotracheal tube. PREOPERATIVE DIAGNOSIS: Symptomatic fibroid uterus. POSTOPERATIVE DIAGNOSIS: Symptomatic fibroid uterus. PROCEDURE PERFORMED: Total laparoscopic hysterectomy with bilateral salpingectomy. FINDINGS: 1. Enlarged mobile uterus which had a fibroid up to the side. 2. Laparoscopic findings of anterior subserosal fibroid and a pedunculated left fundal fibroid. 1. Normal-appearing left ovary. Right ovary had a corpus luteum cyst. ESTIMATED BLOOD LOSS: 100 cc. INDICATIONS: The patient is a 46-year-old, 1, para 0-0-1-0 who initially presented in 2016 for followup from an emergency room appointment. The patient has been seen several times in the last couple of months for abdominal cramping and pain, nausea and vomiting. She was evaluated f or appendicitis and managed conservatively. She was found to have a fibroid and an ovarian cyst and presented for management options. The patient states her periods are heavy and she does have crampi ng. She has pelvic pressure which interferes with her ability to run. We had a long discussion about management options. She does have a pedunculated fibroid but, because of the cramping and heavy bl eeding, the patient has elected to proceed with a total laparoscopic hysterectomy and bilateral salp ingectomy. Risks and benefits of the procedure have been reviewed with the patient. Patient has be en properly consented. DESCRIPTION OF PROCEDURE: Patient was taken to the operating room with intravenous fluids in place. She was then placed on the operating room table in dorsal supine position where general anesthesia was obtained. She was then repositioned into the dorsal lithotomy position with the Yellofin stirr ups and prepped and draped in normal sterile fashion. Exam under anesthesia revealed a mobile, enla rged uterus, with no adnexal masses. A Matias catheter was already in place. A speculum was then pl aced in the patient's vagina and a single-tooth tenaculum was used to grasp the anterior lip of the cervix. The cervix was then sounded to 8 cm and the 6 cm STEVO tip and the large STEVO cup were then assembled and balloons were tested. The STEVO was then inserted without difficulty. The uterus was then able to be manipulated well. Attention was then turned to the patient's abdomen where a 5 mm sk in incision was then made in the umbilicus. The 5 mm trocar was then advanced into the patient's ab domen under direct visualization and then the abdomen was insufflated with CO2 gas until an adequate pneumoperitoneum was achieved. The area underneath the trocar insertion site was found to be unrem arkable. The uterus was noted to have enlarged pedunculated fibroid at the top of the uterus. A 5 m m skin incision was then made in the patient's right lower quadrant and then a 5 mm trocar was advan chu into the patient's abdomen under direct visualization. A 10 mm skin incision was then made in t he patient's left lower quadrant and a 10 mm trocar was advanced into the patient under direct visua lization. The uterus was then easily manipulated, but there was a large pedunculated fibroid somewh at obscuring visualization of the uterus. The LigaSure was then used to clamp across the pedicle and a myomectomy was performed. The uterus was set to the side of the pelvis. Hemostasis was assured. Attention was then turned to the patient's left side. The left ovary was unremarkable. The left fa llopian tube was then elevated and the infundibulopelvic ligament was then clamped, cauterized, and transected and the left salpingectomy was performed. The fallopian tube was withdrawn into the nasra ent's abdomen. The left uteroovarian ligament clamped, cauterized and transected. The left round l igament was clamped, cauterized, and transected. The broad ligament was clamped, cauterized, and tr ansected. The uterine arteries were skeletonized and a bladder flap was created anteriorly. Senait fitzgerald was then turned the patient's right side. The right salpingectomy was performed in a similar fa shion, and the fallopian tube was withdrawn through the 10 mm trocar. The uteroovarian ligament was clamped, cauterized, and transected. The round ligament was clamped, cauterized, and transected. The anterior and posterior leaflet of the broad ligament were then transected. The right uterine artery was then skeletonized, clamped, cauterized and transected. The bladder flap was cre ated anteriorly. The uterus was easily mobile so the Harmonic scalpel was then used to perform the colpotomy posteriorly and then around anteriorly. The colpotomy was performed taking care to note th e bladder was remote from the cystotomy site. The uterus was then withdrawn through the vagina and the pedunculated fibroid that had been removed was then placed in the vagina and withdrawn. Then a s ponge on a stick and a glove were then inserted into the vagina. The pedicles were hemostatic. The 0 Vicryl V-Loc suture was then used in a running fashion to close the vaginal cuff, taking care to in corporate both the uterosacral ligaments. The pelvis was irrigated. The upper abdomen was explored and unremarkable. The appendix was identified and found to be unremarkable. The patient was given methylene blue and a cystoscopy was performed. Bilateral ureteral jets were noted to be flowing. At tention was then returned to the patient's abdomen where, again, the pelvis was explored and the vag inal cuff was found to be hemostatic. The 10 mm trocar was then removed from the patient's abdomen, and the fascial closure device was inserted, and 0 Vicryl suture was used to close the fascia. CO2 gas was expressed from the patient's abdomen, and the remainder of the trocars were removed. All th e incisions were closed with 4-0 Monocryl. Sponge, lap and needle counts were correct x2. The nasra ent was transferred to recovery room in stable condition. /[id number]/MODL
[2017-02-15] MEDS ORDERED: IBUPROFEN 600 MG TAB PO SCH (10:28)
== END 2017-02-14 20:00 | disposition home or self-care (01) ==
LOC: PREOBSVTOIN 01-29 10:31 → F3E 02-14 05:45 → INTOOBSV 02-14 05:45 → FOB 02-14 11:26
PROVIDERS: ADMIT Obstetrics & Gynecology; ATTEND Obstetrics & Gynecology
PROC: 0UT9FZZ Resection of Uterus, Via Natural or Artificial Opening With Percutaneous Endoscopic Assistance (ICD-10-PCS; principal; 2017-02-14 07:15)
PROC: 0UT7FZZ Resection of Bilateral Fallopian Tubes, Via Natural or Artificial Opening With Percutaneous Endoscopic Assistance (ICD-10-PCS; principal; 2017-02-14 07:15)
DX: D25.2 Subserosal leiomyoma of uterus (principal); N83.11 Corpus luteum cyst of right ovary
CPT/HCPCS: 58571; G0378; J0690; J1100; J1170; J1885; J2001; J2250; J2370; J2405; J2704; J3010; Q9968

== ENCOUNTER → 2017-07-03 | Outpatient (CLI) | payer MEDICAID | LOC: FIMAGING 12:04 | PROVIDERS: ATTEND Family Medicine | DX: Z12.31 Encounter for screening mammogram for malignant neoplasm of breast (principal) | CPT/HCPCS: G0202 ==

== ENCOUNTER 2017-09-12 19:17 | Emergency (ER) | payer MEDICAID ==
--- NOTE | 2017-09-12 19:48 | EDPHY ---
H & P Time Seen by Provider: 09/12/17 19:37 HPI/ROS: CHIEF COMPLAINT: Rash HISTORY OF PRESENT ILLNESS: The patient is a 47-year-old female who presents to the emergency department with a diffuse rash. She is concerned that this is the allergic reaction. Patient states that she had her uterus removed earlier in the year. This caused her to gain some weight and feel a little off. She started B complex injections which have improved her symptoms. She takes 1 injection per month. She is on her 5th injection. She states that yesterday she started a weight loss supplement that she ordered on the Internet. She took 2 tablets yesterday and then again today. She was feeling fine. She took her B complex injection and 20 min later developed a diffuse body rash. Her rash is pruritic and she notes hives. She denies any shortness of breath. No wheeze. She has had cough for the past few days but this is not changed today. She has no fevers or chills. No throat tightness. No difficulty swallowing. No abdominal pain or chest pain. REVIEW OF SYSTEMS: My complete review of systems is negative except as mentioned in the HPI. Past Medical/Surgical History: Includes HPV Past surgical history: Includes liposuction, breast reduction, hysterectomy Social history: Patient denies drug use. She does not smoke Smoking Status: Never smoked Physical Exam: 37.0, 09/12/2070, 125, 22, 93% on room air GENERAL: Well-appearing, in no acute distress, alert. HEENT: Eyes normal to inspection, normal pharynx, no signs of dehydration. No intraoral lesions. There is no pharyngeal erythema. Uvula is midline. No mass. NECK: No thyromegaly, no lymphadenopathy, supple. No stridor. RESPIRATORY: Clear to auscultation bilaterally, no rales, rhonchi or wheezing. CVS: Regular rate and rhythm, no rubs, murmurs, or gallops. ABDOMEN: Soft, nontender, nondistended, no organomegaly. BACK: Normal to inspection, no CVA tenderness. SKIN: Diffuse hives. These involve her face, back, abdomen, chest, groin and extremities. There are no petechiae. No target lesions., Warm, dry. No pallor. EXTREMITIES: No pedal edema, no calf tenderness, no Homans sign or cords, no joint swelling. NEURO/PSYCH: Alert and oriented x3, normal mood and affect, normal motor sensory exam. No obvious cranial nerve deficit. Constitutional: Initial Vital Signs Temperature (C) 37.0 C 09/12/17 19:19 Heart Rate 125 H 09/12/17 19:19 Respiratory Rate 22 H 09/12/17 19:19 Blood Pressure 104/71 09/12/17 19:19 O2 Sat (%) 93 09/12/17 19:19 O2 Delivery Mode Room Air Allergies/Adverse Reactions: No Known Allergies Allergy (Verified 09/12/17 19:22) Home Medications: Medication Instructions Recorded Famotidine [Pepcid 20 MG (*)] 20 mg PO BID #10 tab 09/12/17 diphenhydrAMINE [Benadryl] 1 - 2 tab PO Q6 #20 tab 09/12/17 predniSONE 20 mg PO DAILY 4 Days tab 09/12/17 Medical Decision Making ED Course/Re-evaluation: In the emergency department I discussed possible etiologies with the patient and her . I answered all her questions. She was given prednisone 60 mg orally, Benadryl 50 mg orally and Pepcid 20 mg orally. 2034: I rechecked the patient was doing well. Her rash is improved. She has no shortness of breath or wheezing. She was given warnings prior to leaving. She will return with worsening symptoms. She is given prescriptions for prednisone, Benadryl and Pepcid. Differential Diagnosis: My differential includes allergic reaction, medication reaction, anaphylaxis, Painting-Kenn syndrome, TEN - Data Points Medications Given: Discontinued Medications Diphenhydramine HCl (Benadryl) 50 mg PO EDNOW ONE Stop: 09/12/17 19:51 Last Admin: 09/12/17 19:58 Dose: 50 mg Famotidine (Pepcid) 20 mg PO EDNOW ONE Stop: 09/12/17 19:51 Last Admin: 09/12/17 19:58 Dose: 20 mg Prednisone (Prednisone) 60 mg PO EDNOW ONE Stop: 09/12/17 19:51 Last Admin: 09/12/17 19:58 Dose: 60 mg Departure - Departure Disposition: Home, Routine, Self-Care Clinical Impression: Urticaria, Rash Allergic reaction Qualifiers: Encounter type: initial encounter Qualified Code(s): T78.40XA - Allergy, unspecified, initial encounter Condition: Good Instructions: Urticaria (ED), Allergies (ED) Additional Instructions: Return with increasing rash, shortness of breath, swelling or any other concerns. Take your prescriptions as directed. Referrals: Roney An MD [place] [place] - 3-4 days, if not improved Prescriptions: diphenhydrAMINE [Benadryl] 1 - 2 tab PO Q6 #20 tab Famotidine [Pepcid 20 MG (*)] 20 mg PO BID #10 tab predniSONE 20 mg PO DAILY 4 Days tab
[2017-09-12] MEDS ORDERED: predniSONE 20 MG TAB PO ONE (19:50)
[2017-09-12] MEDS ORDERED: diphenhydrAMINE 25 MG CAP PO ONE (19:50)
[2017-09-12] MEDS ORDERED: FAMOTIDINE 20 MG TAB PO ONE (19:50)
[2017-09-12 20:43] VITALS: BP 110/69; PULSE 93; RESP 18; TEMP 98.6; O2SAT 96
== END 2017-09-12 20:42 | disposition home or self-care (01) ==
DX: R21 Rash and other nonspecific skin eruption (principal); L50.0 Allergic urticaria
CPT/HCPCS: J7512

== ENCOUNTER → 2017-12-29 | Outpatient (CLI) | payer MEDICAID | LOC: FIMAGING 10:46 | PROVIDERS: ATTEND Family Medicine | DX: M22.42 Chondromalacia patellae, left knee (principal) ==

== ENCOUNTER → 2018-09-01 | Outpatient (CLI) | payer MEDICAID | LOC: FIMAGING 08:36 | PROVIDERS: ATTEND Family Medicine | DX: Z12.31 Encounter for screening mammogram for malignant neoplasm of breast (principal); R92.2 Inconclusive mammogram ==

== ENCOUNTER → 2018-09-23 | Outpatient (CLI) | payer MEDICAID | LOC: FIMAGING 12:42 | PROVIDERS: ATTEND Family Medicine | DX: R92.8 Other abnormal and inconclusive findings on diagnostic imaging of breast (principal) ==